=== PATIENT | male | born 1965 | race Caucasian/White ===

== ENCOUNTER 2019-09-03 20:39 | Emergency (ER) | payer SELFPAY ==
--- OUTSIDE RECORDS SUMMARY | 2019-09-03 23:00 | XMS REPORT | Continuity of Care Document ---
:1965 Author Organization [facility] t Address [address] [place] [address] Care Team Providers Name Role Phone Samuel Jimenez MD Primary Care Physician Jermaine DEL VALLE, HKarol Attending Clinician Elvis Burden MA Attending Clinician Unavailable THOMAS Attending Clinician Unavailable Lamin Guzman Attending Clinician Payers Payer Name Policy Type Policy Number Effective Date Expiration Date S [facility] xxxxxxxxxxx 2019 [place] [employer]xxxxxxx 00:00:00 [employer] [id number] Problems Condition Condition Condition Status Onset Resolution Last Treating Co mments Source Name Details Category Date Date Treatment Clinician Date M23 - Diagnosis Active 2016-12-27 M emoria UNSPECIFIE - 07:43:00 l D INTERNAL M23. - 00:01: He rmann DERANGEME UNSPECIFIE 00 D INTERNAL DERANGEME Active 10/21/2016 MH OPID Eldred Limb pain Limb pain Problem Active [facility] [place] [facility] Acute Acute Problem Active Univers internal internal ity of [place] t of knee, t of knee, Ph ysici left left ans Allergies, Adverse Reactions, Alerts This patient has no known allergies or adverse reactions. Family History Family Member Diagnosis Comments Start Date Stop Date Source Natural brother Colon polyps [facility] Social History Social Habit Start Date Stop Date Quantity Comments Source Sex Assigned At [place] M ethodist Alcohol intake 2019-07-16 2019-07-16 Current drinker [place] [facility] 00:00:00 00:00:00 of alcohol (finding) Alcohol Comment 2019-06-28 2019-06-28 6 Martin Hernandez ethodist 00:00:00 00:00:00 Social History 2016-10-30 2016-10-30 [facility] Darlyn desai 04:59:00 04:59:00 Smoking Status Start Date Stop Date Source Never smoker Martin Browningis t Medications Ordered Filled Start Stop Current Ordering Indication Dosage Frequency Signature Comments Components Source Medication Medication Date Date Medication? Clinician (SIG) Name Name pantoprazol No 40mg QD Take 40 mg Martin manjarrez 07-27 by mouth [facility] (PROTONIX) 09:05: 00:[address] 40 MG EC 57 :00 tablet pantoprazol Yes Gastroesoph 40mg QD Take 1 Martin manjarrez 07-27 ageal tablet (40 [facility] (PROTONIX) 00:00: reflux mg total) st 40 MG EC 00 disease, by mouth tablet esophagitis daily. presence not specified multivitami Yes 1{tbl} QD Take 1 Anil arredondo n,tx-iron-C 4-17 tablet by Met becca Solis 09:18: mouth st (UNI-THERA 33 daily. M) 27-0.4 mg tablet methylPREDN methylPREDN Yes JOSE TAKE Univers ISolone 4 ISolone 4 8-11 THOMAS Luz DIRECTED ity of MG Oral MG Oral 00:00: [place] Tablet Tablet 00 Physici Therapy Therapy ans Pack Pack Procedures Procedure Date / Time Performed Performing Clinician [facility] e SURGICAL PATHOLOGY 2019-07-16 11:28:00 Stefani Dean REQUEST FL ESOPHAGRAM SINGLE 2019-07-01 10:35:00 Stefani Dean CONTRAST Plan of Care Planned Activity Planned Date Details Comments Source Future Scheduled 2019-10-12 INFLUENZA VACCINE Steve Holland Test 00:00:00 [code = INFLUENZA VACCINE] Future Scheduled 2017-10-25 COLONOSCOPY SCREENING Anil bryon [facility] Test 00:00:00 [code = COLONOSCOPY SCREENING] Future Scheduled 2017-10-25 SHINGLES VACCINES Steve Holland Test 00:00:00 (#1) [code = SHINGLES VACCINES (#1)] Encounters Start End Encounter Admission Attending Care Care Encounter Source Date/Time Date/Time Type Type Clinicians Facility Department ID 2019-07-16 2019-07-16 Outpatient JERMAINE [facility] [id number] [place] 00:00:00 00:00:00 [address] 2019-07-01 2019-07-01 Outpatient JERMAINE [facility] [id number] [place] 00:00:00 00:00:[address] 2016-11-03 2016-11-03 CLARITA Ocampo UTP [id number] Univers 10:30:00 10:30:00 t; JOSE GUZMAN M.D. [facility] 2016-10-29 2016-10-29 Outpatient Thomas OIP [facility] [id number] 10:29:00 23:59:00 Jose Kimble 00 2016-10-21 2016-10-21 CLARITA Ocampo UTP [id number] Univers 10:00:00 10:00:00 t; JOSE GUZMAN M.D. [facility] Results Test Description Test Time Test Comments Results Result Comments Source Surgical pathology request 2019-07-18 15:30:30 Test Item Value Reference Range Interpretation Comme nts Case number (test code = [id number]) [id number] Surgical pathology report (test code = See link below for PDF Lab R eport 8591) Result status (test code = 2385296) This is Final Report for [id number] [facility] Esophagram Single [id number] 10:50:43Hm Interface, Radiology Results 07/01/2019 10:53 AM CDTEXAMINATION: FL ESOPHAGRAM SINGLECONTRASTCLINICAL HISTORY: R13.10 Dysphagia unspecified, Dysphagia retrosternalCOMPARISON: None.Fluoroscopy time: 0.9 minutes. 9 images.FINDINGS: Thin consistency contrast material was administered.Limited evaluation of the esophageal mucosa.No fixed strictures are identified. There is a tiny typeI hiatal hernia. A few nonpropulsive tertiary contractions are noted, but esophageal motility was otherwise normal.No spontaneous or provoked gastroesophageal reflux was identified during the course ofthe examination.IMPRESSION:No fixed strictures are identified.Tiny type I hiatal hernia.[id number] Episcopalian
--- OUTSIDE RECORDS SUMMARY | 2019-09-03 23:00 | XMS REPORT | Clinical Summary ---
:1965 Author Organization [facility] Address [address] [place] [address] Care Team Providers Name Role Phone Chino Jimenez MD Primary Care Provider Allergies No Known Allergies Medications Medication Sig Dispensed Refills Start Date End Date Status multivitamin,tx-iron- Take 1 0 Active Ca-FA-min (UNI-THERA tablet by M) 27-0.4 mg tablet mouth daily. pantoprazole Take 1 90 tablet 2 07/28/2019 Active (PROTONIX) 40 MG EC tablet (40 tabletIndications: mg total) Gastroesophageal by mouth reflux disease, daily. esophagitis presence not specified pantoprazole Take 40 mg 0 Discon tinued (PROTONIX) 40 MG EC by mouth 0 (Reorder) tablet daily. Active Problems Not on file Encounters Date Type Specialty Care Team Description 07/28/2019 Orders Only Gastroenterology Chino Dean Gastroesop hageal reflux MD Brianda disease, esopha gitis presence not sp ecified (Primary Dx) 07/16/2019 Lab Lab Chino Dean MD 07/16/2019 Documentation Gastroenterology Chino Dean EGMalena Lamar MD 07/15/2019 Telephone Gastroenterology Jocelyn Burden MA 07/11/2019 Telephone Gastroenterology Chino Dean MD 07/11/2019 Travel 07/01/2019 Hospital Encounter Radiology Chino Dean Esophagjosseline al dysphagia MD Brianda 07/01/2019 Orders Only GastroenterChino Silva Esophageal dysphagia MD Brianda (Primary Dx) 07/01/2019 Travel 06/28/2019 Telephone Consult Gastroenterology Chino Dean Esoph ageal dysphagia MD Brianda (Primary Dx) 06/28/2019 Travel 06/25/2019 Telephone Gastroenterology Jocelyn Burden MA 06/05/2019 Telephone Gastroenterology Chino Dean MD after 09/02/2018 Family History Medical History Relation Name Comments Colon polyps Brother Relation Name Status Comments Brother Social History Tobacco Use Types Packs/Day Years Used Date Never Smoker Smokeless Tobacco: Former User Q uit: 07/15/2009 Alcohol Use Drinks/Week oz/Week Comments Yes 6 Sex Assigned at Date Recorded Not on file Job Start Date Occupation Industry Not on file Not on file Not on file Travel History Travel Start Travel End No recent travel history available. Last Filed Vital Signs Not on file Plan of Treatment Health Maintenance Due Date Last Done Comments COLONOSCOPY SCREENING 10/25/2017 SHINGLES VACCINES (#1) 10/25/2017 INFLUENZA VACCINE 10/12/2019 Procedures Procedure Name Priority Date/Time Associated Comments Diagnosis SURGICAL PATHOLOGY Routine 07/16/2019 11:28 AM Re sults for this REQUEST CDT procedure are i n the results section. FL ESOPHAGRAM SINGLE Routine 07/01/2019 10:35 AM Esophageal Results for this CONTRAST CDT dysphagia procedure are i n the results section. after 09/02/2018 Results Surgical pathology request (07/16/2019 11:28 AM CDT) [facility] DEPARTMENT OF PATHOLOGY AND GENOMIC MEDICINE Surgical pathology See link below [facility] DEPARTMENT OF report for PDF Lab PATHOLOGY AND Report GENOMIC MEDICINE Result status This is Final [facility] DEPARTMENT OF Report for PATHOLOGY AND [id number] GENOMIC MEDICINE Specimen Performing Organization Address City/State/Zipcode Phone Number [facility] DEPARTMENT OF PATHOLOGY AND [address] [place], [place] [address] GENOMIC MEDICINE [place] Esophagram Single Contrast (07/01/2019 10:35 AM CDT) Specimen Narrative Performed At EXAMINATION: [place] ESOPHAGRAM SINGLE CONT RAST RADIANT CLINICAL HISTORY: R13.10 Dysphagia unspecified, Dy sphagia retrosternal COMPARISON: None. Fluoroscopy time: 0.9 minutes. 9 images. FINDINGS: Thin consistency contrast material was administered. L imited evaluation of the esophageal mucosa. No fixed strictures are identified. There is a tiny ty pe I hiatal hernia. A few nonpropulsive tertiary contractions are noted, but esophageal motility was otherwise normal . No spontaneous or provoked gastroesophageal reflux was identified during the course of the examination. IMPRESSION: No fixed strictures are identified. Tiny type I hiatal hernia. [id number] Procedure Note Hm Interface, Radiology Results Incoming - 07/01/2019 10:53 AM CDT EXAMINATION: FL ESOPHAGRAM SINGLE CONTRAST CLINICAL HISTORY: R13.10 Dysphagia uns pecified, Dysphagia retrosternal COMPARISON: None. Fluoroscopy time: 0.9 minutes. 9 images. FINDINGS: Thin consistency contrast material was a dministered. Limited evaluation of the esophageal mucosa. No fixed strictures are identified. Ther e is a tiny type I hiatal hernia. A few nonpropulsive tertiary contractions are noted, but esophageal motility was otherwise normal. No spontaneous or provoked gastroesophag eal reflux was identified during the course of the examination. IMPRESSION: No fixed strictures are identified. Tiny type I hiatal hernia. 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
--- OUTSIDE RECORDS SUMMARY | 2019-09-03 23:00 | XMS REPORT | Continuity of Care Document ---
:1965 Author Organization [facility] Care Team Providers Name Role Phone [facility] Unavailable Un available Problems Problem Status Onset Classification Date Comments Sourc e Date Reported M23.92 - Active OPID UNSPECIFIED 7 [place] INTERNAL DERANGEME Medications No Data Provided for This Section Allergies, Adverse Reactions, Alerts No Known Medication Allergies Immunizations No Data Provided for This Section Results No Data Provided for This Section Pathology Reports No Data Provided for This Section Diagnostic Reports Report Value Date Source Knee wo contrast MRI 10/29/2016 OP[facility] [place] EXAM: Left knee wo contrast MRI INDICATION: M23.92 Unspeci fied internal derangement of left knee - M23.92 Unspecified internal derangement of left knee COMPARISON: None. TECHNIQUE: Multiplanar, mult isequence magnetic resonance imaging of the left knee was performed without the administration of intravenous gadolinium contrast. FINDINGS: Intercondylar notch: Anterio r cruciate ligament and posterior cruciate ligament are intact. Medial compartment: No menis james tear or chondral defect is seen. Medial collateral ligament is intact. Lateral compartment: No meni scal tear or chondral defect is seen. Lateral collateral ligament complex is intact. Posterolateral corner structures are intact. Patellofemoral compartment: The hyaline cartilage along the patella is intact. There are numerous, deep, full-thickness cartilage fissures with underlying cystic changes and mild bone marrow edema along the apex of the trochlea. Extensor mechanism: Quadriceps and patellar tend ons are intact. Other findings: Small joint effusion is seen. Small to moderate-sized Barrios's cyst is seen, showing superior dissection. Surrounding soft tissue edema is seen, suggesting underlying disruption or leakage. IMPRESSION: 1. Full-thickness chondrosis with underlying cystic change and mild marrow edema along the apex of the trochlea. 2. No meniscal, cruciate ligament, or collateral ligament tear. 3. Small joint effusion. 4. Small to moderate-sized B deepthi's cyst, showing evidence of disruption or leakage. SL: SLEE-PC Consultation Notes No Data Provided for This Section Discharge Summaries No Data Provided for This Section History and Physicals No Data Provided for This Section Vital Signs No Data Provided for This Section Encounters Location Location Encounter Encounter Reason Attending ADM DE Stat Source Details Type Number For Provider Date Date Visit [facility] Outpt Diag [id number] Jose 10/29 10/30 [facility] OP[facility] Procedures No Data Provided for This Section Assessment and Plan No Data Provided for This Section Plan of Care No Data Provided for This Section Social History Social History Date Source No data available for this 10/30/2016 OPID [place] and section Family History No Data Provided for This Section Advance Directives No Data Provided for This Section Functional Status No Data Provided for This Section
--- NOTE | 2019-09-04 10:30 | ER ---
Nurse's Notes [facility] Name: Jaylon Caballero Age: 53 yrs Sex: Male : 1965 Arrival Date: 09/03/2019 Time: 20:49 Bed Waiting Private MD: Diagnosis: Presentation: 09/02 20:58 Chief complaint: Patient states: Woke up this morning with a cough, gone through a very ca1 knotted stomach and around 5pm I started having rash blisters on my arm, waistline, feet, legs. Denies SOB. Denies fever. 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 Coronavirus screen: Proceed with normal triage. Patient reports a cough. Patient denies shortness of breath or difficulty breathing. Patient denies measured and/or subjective temperature greater than 100.4F prior to today's visit. Patient denies travel on a cruise ship or to a country the [facility] currently lists as an affected area. Patient denies contact with known and/or suspected case of COVID-19. Ebola Screen: Patient negative for fever greater than or equal to 101.5 degrees Fahrenheit, and additional compatible Ebola Virus Disease symptoms Patient denies exposure to infectious person. Patient denies travel to an Ebola-affected area in the 21 days before illness onset. No symptoms or risks identified at this time. Initial Sepsis Screen: Does the patient meet any 2 criteria? No. Patient's initial sepsis screen is negative. Does the patient have a suspected source of infection? No. Patient's initial sepsis screen is negative. Risk Assessment: Do you want to hurt yourself or someone else? Patient reports no desire to harm self or others. Onset of symptoms was September 03, 2019. 20:58 Method Of Arrival: Ambulatory ca1 20:58 Acuity: CARMELA 3 ca1 Historical: - Allergies: 21:03 No Known Allergies; ca1 - Home Meds: 21:03 pantoprazole oral oral [Active]; ca1 - PMHx: 21:03 Gastric Reflux; ca1 - PSHx: 21:03 Ankle Surgery; Back Surgery; ca1 - Immunization history:: Adult Immunizations up to date. - Social history:: Smoking status: Patient denies any tobacco usage or history of. Vital Signs: 20:58 BP 148 / 102; Pulse 85; Resp 16 S; Temp 97.2(TE); Pulse Ox 98% on R/A; Weight 104.33 kg ca1 (R); Height 5 ft. 10 in. (177.80 cm) (R); 20:58 Body Mass Index 33.00 (104.33 kg, 177.80 cm) ca1 ED Course: 20:49 Patient arrived in ED. ds1 21:01 Triage completed. ca1 21:03 Arm band placed on right wrist. ca1 Administered Medications: No medications were administered Outcome: 23:27 Patient left the ED. lp1 Signatures: Sindy Desouza ds1 Delilah Davila, RN RN lp1 Kendra Jackson, RN RN ca1
[2019-09-04 13:30] VITALS: BP 148/102; TEMP 97.2; O2SAT 98
== END 2019-09-03 23:27 | disposition left against medical advice (07) ==
LOC: ER 20:39
DX: Z53.21 Procedure and treatment not carried out due to patient leaving prior to being seen by health care provider (principal)
CPT/HCPCS: 99281

== ENCOUNTER 2022-01-21 20:33 | Emergency (ER) | payer OTHER ==
--- OUTSIDE RECORDS SUMMARY | 2022-01-21 20:36 | XMS REPORT | Continuity of Care Document ---
:1965 Author Organization [facility] t Address [address] [place] [address] [address] [place] [address] Care Team Providers Name Role Phone Stefani Jimenez MD Primary Care Physician Lorena Phillips MD Attending Clinician [phone] LORENA PHILLIPS Attending Clinician Unavailable Stefani Dean MD Attending Clinician JOSE GUZMAN M.D. Attending Clinician Unavailable Jose Guzman Attending Clinician Payers Payer Name Policy Type Policy Number Effective Date Expiration Date S baldev [facility] 2 [id number] 2021 00:00:00 [facility] MARKYKaro 2014 00:00:00 Problems Condition Condition Condition Status Onset Resolution Last Treating Co mments Source Name Details Category Date Date Treatment Clinician Date M23.92 - M23.92 - Diagnosis Active 2016-12-27 Memoria UNSPECIFIE UNSPECIFIE 8- 07:43:00 l D INTERNAL D INTERNAL 00:01: He lawrence BROWNANGEME DERANGEME 00 Active 10/21/2016 [facility] OPID [place] Acute Acute Problem Active [facility] internal internal Physic i derangemen derangemen an s t of knee, t of knee, left left Limb pain Limb pain Problem Active [facility] Allergies, Adverse Reactions, Alerts Allergy Allergy Status Severity Reaction(s) Onset Inactive Treating Comm ents Source Name Type Date Date Clinician NO KNOWN Drug Active Univers ALLERGIE Class ity of [facility] Family History Family Member Diagnosis Comments Start Date Stop Date Source Natural brother Colon polyps [facility] Social History Social Habit Start Date Stop Date Quantity Comments Source Alcohol intake 2021-04-13 2021-04-13 Current drinker [facility] 00:00:00 00:00:00 of alcohol Hospital (finding) Tobacco use and 2019-07-16 2019-07-16 Former smokeless [facility] exposure 00:00:00 00:00:00 tobacco user Hospital Alcohol Comment 2019-06-28 2019-06-28 6 [facility] 00:00:00 00:00:00 Hospital History of 2009-07-15 User of smokeless [facility] tobacco use 00:00:00 tobacco Hospital Sex Assigned At [birth year] [facility] 00:00:00 [facility]:00 Hospital Smoking Status Start Date Stop Date Source Never smoked tobacco [facility] Medications Ordered Filled Start Stop Current Ordering Indication Dosage Frequency Signature Comments Components Source Medication Medication Date Date Medication? Clinician (SIG) Name Name pantoprazol Yes [id number] 40mg QD Take 1 [facility] e 2-01 tablet (40 st (PROTONIX) 00:00: mg total) Ho spita 40 MG EC 00 by mouth l tablet daily. pantoprazol 2020-03- No [id number] TAKE ONE Methodi e 0-02 04-13 (1) st (PROTONIX) 00:00: 00:00 TABLET(S) H ospita 40 MG EC 00 :00 BY MOUTH l tablet ONCE A DAY. multivitami Yes 1{tbl} QD Take 1 Me thodi n,tx-iron-C 4-[address] a-FA-min 09:18: mouth Hospita (UNI-THERA 33 daily. l M) 27-0.4 mg tablet methylPREDN methylPREDN Yes JOSE TAKE [place] ISolone 4 ISolone 4 8-11 THOMAS Luz DIRECTED Physici MG Oral MG Oral 00:00: ans Tablet Tablet 00 Therapy Therapy Pack Pack Procedures This patient has no known procedures. Plan of Care Planned Activity Planned Date Details Comments Source Future Scheduled 2022-01-16 HEPATITIS B VACCINES Met [facility] Test 23:15:08 (1 of 3 - 3-dose series) [code = HEPATITIS B VACCINES (1 of 3 - 3-dose series)] Future Scheduled 2022-01-16 COVID-19 VACCINE (#1) [facility] Test 23:15:08 [code = COVID-19 VACCINE (#1)] Future Scheduled 2022-01-16 Hepatitis C screening [facility] Test 23:15:08 (procedure) [code = 196508709] Future Scheduled 2022-01-16 COLONOSCOPY SCREENING [facility] Test 23:15:08 [code = COLONOSCOPY SCREENING] Future Scheduled 2022-01-16 SHINGLES VACCINES (1 Met [facility] Test 23:15:08 of 2) [code = SHINGLES VACCINES (1 of 2)] Future Scheduled 2022-01-16 INFLUENZA VACCINE Method [facility] Test 23:15:08 [code = INFLUENZA VACCINE] Encounters Start End Encounter Admission Attending Care Care Encounter Source Date/Time Date/Time Type Type Clinicians Facility Department ID 2021-08-30 2021-08-30 Office Wade Phillips [id number] 10:15:00 10:30:00 Visit Lorena Ford [id number] Se carolyn Clayquyen [id number] 2021-08-30 2021-08-30 Outpatient DESIRE PHILLIPS [id number] [place] 10:15:00 10:15:00 LORENA valdes 2021-04-13 2021-04-13 Telemedici Jermaine [id number] Methodi 13:30:00 13:31:57 ne Stefani Lamar [id number] 3.430.2.7 Hospit a .[id number] l .8 2021-04-13 2021-04-13 Outpatient JERMAINE [facility] [id number] [place] 00:00:00 00:00:[address] 2021-04-09 2021-04-09 Refill Jermaine [id number] [facility] 00:00:00 00:00:00 Stefani Lamar [id number] 3.430.2.7 Hospit a .3.448084 l .8 2019-09-05 2019-09-05 Outpatient R [facility] [id number] Univers 16:00:00 16:00:[address] [facility] 2019-07-16 2019-07-16 Outpatient JERMAINE, [facility] [id number] [place] 00:00:00 00:00:00 [address] 2019-07-01 2019-07-01 Outpatient JERMAINE [facility] [id number] [place] 00:00:00 00:00:[address] 2016-11-03 2016-11-03 CLARITA Ocampo UTP [id number] [place] 10:30:00 10:30:00 t; JOSE GUZMAN M.D. Physici EDDIE, ans M.D. 2016-10-29 2016-10-30 Outpt Diag nullFlavo [facility] [id number] Memoria 15:29:00 04:59:00 Services r Outpatient 00 l Leandro Michaelsland 2016-10-29 2016-10-29 Outpatient KHOA Guzman [facility] [id number] 10:29:00 23:59:00 Jose Kimble 00 2016-10-21 2016-10-21 CLARITA Ocampo UTP [id number] [place] 10:00:00 10:00:00 t; JOSE GUZMAN M.D. Physici EDDIE, ans M.D. Results This patient has no known results.
[2022-01-21] MEDS ORDERED: NA CHLORIDE 0.9% 1,000 ML ONE ×2 (21:44→23:32)
--- NOTE | 2022-01-21 21:49 | RAD REPORT ---
EXAM DESCRIPTION: RAD - Chest Single View - 01/21/2022 9:42 pm CLINICAL HISTORY: COUGH COMPARISON: CHEST PA AND LAT 2 VIEW dated 04/18/2008 FINDINGS: Lines: None. Lungs: No evidence of edema or pneumonia. Pleural: No significant pleural effusions or pneumothorax. Cardiac: The heart size is within normal limits. Mediastinum: Within normal limits. Bones: No acute fractures. Other: None IMPRESSION: No acute cardiopulmonary disease.
[2022-01-21] MEDS ORDERED: ONDANSETRON 4 MG/2 ML VIAL ONE (22:18)
[2022-01-21] MEDS ORDERED: NA CHLORIDE 0.9% 500 ML ONE (22:18)
[2022-01-21] MEDS ORDERED: GLUCAGON 1 MG/VIAL ONE ×2 (22:18→23:49)
[2022-01-21] MEDS ORDERED: FAMOTIDINE 20 MG/2 ML VIAL IV ONE (22:18)
[2022-01-21 22:28] LABS: Absolute Lymphocytes (CBC) 1.4 K/uL (0.7-4.9); Hematocrit 46.8 % (39.6-49.0); Lymphocytes % 21.3 % (15.3-44.8); MCV 94.7 fL (80-100); MPV 8.3 fL (7.6-11.3); Protime INR 0.98; RBC Red Blood Cell Count 4.94 M/uL (4.33-5.43)
[2022-01-21 23:42] LABS: Albumin 4.4 g/dL (3.4-5.0); Bilirubin Direct 0.1 mg/dL (0-0.2); Bilirubin Total 0.5 mg/dL (0.2-1.0); Magnesium 2.4 mg/dL (1.8-2.4); Potassium 3.8 mmol/L (3.5-5.1); Protein, Total 8.3 g/dL (6.4-8.2); Troponin High Sensitivity 5.4 pg/mL (<58.9)
--- NOTE | 2022-01-22 00:34 | EDPHYS ---
Physician Documentation [facility] Name: Jaylon Caballero Age: 56 yrs Sex: Male : 1965 Arrival Date: 01/21/2022 Time: 20:47 Bed 2 Private MD: ED Physician Baljinder Steele HPI: 01/22 00:10 This 56 yrs old Male presents to ER via Ambulatory with complaints of Foreign sarahi Body In Throat. 00:10 The patient presents to the emergency department with nausea, that is mild. Onset: The sarahi symptoms/episode began/occurred just prior to arrival. Possible causes: ESOPHAGEAL FOOD BOLUS. The symptoms are aggravated by food , The symptoms are alleviated by NOT EATING. Associated signs and symptoms: The patient has no apparent associated signs or symptoms. Severity of symptoms: At their worst the symptoms were mild in the emergency department the symptoms are unchanged. The patient has experienced similar episodes in the past, multiple times. Historical: - Allergies: 01/21 20:48 No Known Allergies; hb - Home Meds: 20:48 pantoprazole Oral [Active]; hb - PMHx: 20:48 Gastric Reflux; hb - Immunization history:: unknown. - Social history:: Smoking status: unknown. ROS: 01/22 00:12 Constitutional: Negative for fever, chills, and weight loss, Eyes: Negative for injury, sarahi pain, redness, and discharge, ENT: Negative for injury, pain, and discharge, Neck: Negative for injury, pain, and swelling, Cardiovascular: Negative for chest pain, palpitations, and edema, Respiratory: Negative for shortness of breath, cough, wheezing, and pleuritic chest pain, Back: Negative for injury and pain, : Negative for injury, bleeding, discharge, and swelling, MS/Extremity: Negative for injury and deformity, Skin: Negative for injury, rash, and discoloration, Neuro: Negative for headache, weakness, numbness, tingling, and seizure, Psych: Negative for depression, anxiety, suicide ideation, homicidal ideation, and hallucinations, Allergy/Immunology: Negative for hives, rash, and allergies, Endocrine: Negative for neck swelling, polydipsia, polyuria, polyphagia, and marked weight changes, Hematologic/Lymphatic: Negative for swollen nodes, abnormal bleeding, and unusual bruising. Abdomen/GI: Positive for nausea and vomiting, FOOD BOLUS IN ESOPHAGUS . Exam: 00:12 Constitutional: This is a well developed, well nourished patient who is awake, alert, sarahi and in no acute distress. Head/Face: Normocephalic, atraumatic. Eyes: Pupils equal round and reactive to light, extra-ocular motions intact. Lids and lashes normal. Conjunctiva and sclera are non-icteric and not injected. Cornea within normal limits. Periorbital areas with no swelling, redness, or edema. ENT: Nares patent. No nasal discharge, no septal abnormalities noted. Tympanic membranes are normal and external auditory canals are clear. Oropharynx with no redness, swelling, or masses, exudates, or evidence of obstruction, uvula midline. Mucous membranes moist. Neck: Trachea midline, no thyromegaly or masses palpated, and no cervical lymphadenopathy. Supple, full range of motion without nuchal rigidity, or vertebral point tenderness. No Meningismus. Chest/axilla: Normal chest wall appearance and motion. Nontender with no deformity. No lesions are appreciated. Cardiovascular: Regular rate and rhythm with a normal S1 and S2. No gallops, murmurs, or rubs. Normal PMI, no JVD. No pulse deficits. Respiratory: Lungs have equal breath sounds bilaterally, clear to auscultation and percussion. No rales, rhonchi or wheezes noted. No increased work of breathing, no retractions or nasal flaring. Abdomen/GI: Soft, non-tender, with normal bowel sounds. No distension or tympany. No guarding or rebound. No evidence of tenderness throughout. Back: No spinal tenderness. No costovertebral tenderness. Full range of motion. Male : Normal genitalia with no discharge or lesions. Skin: Warm, dry with normal turgor. Normal color with no rashes, no lesions, and no evidence of cellulitis. MS/ Extremity: Pulses equal, no cyanosis. Neurovascular intact. Full, normal range of motion. Neuro: Awake and alert, GCS 15, oriented to person, place, time, and situation. Cranial nerves II-XII grossly intact. Motor strength 5/5 in all extremities. Sensory grossly intact. Cerebellar exam normal. Normal gait. Psych: Awake, alert, with orientation to person, place and time. Behavior, mood, and affect are within normal limits. 00:12 ECG was reviewed by the Attending Physician. Vital Signs: 01/21 20:47 Pulse 83; Resp 16; Temp 97.5; Pulse Ox 98% on R/A; Weight 99.79 kg; Height 5 ft. 10 in. hb (177.80 cm); Pain 3/10; 23:30 BP 121 / 79; Pulse 63; Resp 16; Pulse Ox 97% on R/A; aa9 01/22 00:00 BP 137 / 87; Pulse 76; Resp 16 S; Pulse Ox 98% on R/A; aa9 01/21 20:47 Body Mass Index 31.57 (99.79 kg, 177.80 cm) hb MDM: 01/21 20:55 Patient medically screened. [facility] 01/22 00:14 Differential diagnosis: Nonspecific abd pain, gastritis, pancreatitis, viral sarahi gastroenteritis. Data reviewed: vital signs, nurses notes, lab test result(s), EKG, radiologic studies, plain films. Data interpreted: value engineer: rate is 83 beats/min, rhythm is regular, Pulse oximetry: on room air is 98 %. Test interpretation: by ED physician or midlevel provider: ECG, plain radiologic studies. Counseling: I had a detailed discussion with the patient and/or guardian regarding: the historical points, exam findings, and any diagnostic results supporting the discharge/admit diagnosis, lab results, radiology results. 01/21 20:57 Order name: Basic Metabolic Panel; Complete Time: 00:30 [facility] 01/21 20:57 Order name: CBC with Diff; Complete Time: 23:03 [facility] 01/21 20:57 Order name: LFT's; Complete Time: 00:30 [facility] 01/21 20:57 Order name: Magnesium; Complete Time: 00:30 [facility] 01/21 20:57 Order name: NT PRO-BNP; Complete Time: 00:30 [facility] 01/21 20:57 Order name: PT-INR; Complete Time: 23:03 [facility] 01/21 20:57 Order name: Troponin HS; Complete Time: 00:30 [facility] 01/21 20:57 Order name: XRAY Chest (1 view); Complete Time: 23:03 [facility] 01/21 20:57 Order name: EKG; Complete Time: 20:58 [facility] 01/21 20:57 Order name: Cardiac monitoring; Complete Time: 23:29 [facility] 01/21 20:57 Order name: EKG - Nurse/Tech; Complete Time: 00:03 [facility] 01/21 20:57 Order name: IV Saline Lock; Complete Time: 22:30 [facility] 01/21 20:57 Order name: Labs collected and sent; Complete Time: :30 [facility] 01/21 20:57 Order name: O2 Per Protocol; Complete Time: 23:29 [facility] 01/21 20:57 Order name: O2 Sat Monitoring; Complete Time: 23:29 [facility] 01/22 00:30 Order name: PO challenge; Complete Time: 00:43 [facility] EC:12 Rate is 77 beats/min. Rhythm is regular. QRS [place] is Normal. MS interval is normal. QRS sarahi interval is normal. QT interval is normal. No Q waves. T waves are Normal. No ST changes noted. Clinical impression: Normal ECG, LVH, and No evidence of ischemia. Interpreted by me. Reviewed by me. Administered Medications: 01/21 22:30 Drug: Zofran (Ondansetron) 4 mg Route: IVP; Site: left antecubital; 01/22 00:43 Follow up: Response: No adverse reaction 01/21 22:30 Drug: Pepcid (famotidine) 20 mg Route: IVP; Site: left antecubital; 01/22 00:43 Follow up: Response: No adverse reaction 01/21 22:30 Drug: Glucagon 1 mg Route: IVP; Site: left antecubital; 01/22 00:43 Follow up: Response: No adverse reaction 01/21 22:30 Drug: NS 0.9% 500 ml Route: IV; Rate: bolus; Site: left antecubital; 23:40 Drug: NS 0.9% 1000 ml Route: IV; Rate: 125 ml/hr; Site: left antecubital; 01/22 00:43 Follow up: Response: No adverse reaction; IV Status: Order to discontinue infusion; IV aa9 Intake: 250ml 00:02 Drug: Glucagon 1 mg Route: IVP; Site: left antecubital; 00:43 Follow up: Response: No adverse reaction aa9 Disposition Summary: 01/22/22 00:33 Discharge Ordered Location: Home sarahi Problem: new sarahi Symptoms: have improved sarahi Condition: Stable sarahi Diagnosis - Food in esophagus - RESOLVED sarahi - Esophageal obstruction - RESOLVED sarahi Followup: sarahi - With: Private Physician - When: 1 - 2 days - Reason: Recheck today's complaints, Continuance of care, Re-evaluation by your physician Followup: sarahi - With: Mely Peter MD - When: 1 - 2 days - Reason: Recheck today's complaints, Re-evaluation by your physician Discharge Instructions: - Discharge Summary Sheet sarahi - Esophageal Stricture sarahi - Esophageal Dilatation sarahi Forms: - Medication Reconciliation Form sarahi - Thank You Letter sarahi - Antibiotic Education sarahi - Prescription Opioid Use [facility] Prescriptions: - Protonix 40 mg Oral Tablet - take 1 tablet by ORAL route once daily; 30 tablet; Refills: 0, Product [facility] Selection Permitted - Zofran 4 mg Oral Tablet - take 1 tablet by ORAL route every 12 hours As needed; 20 tablet; Refills: 0, [facility] Product Selection Permitted Signatures: Dispatcher [employer] Baljinder Curiel MD MD cha Baxter, Heather, RN Sarai Cali tw5 Alia Ann RN RN aa9
--- NOTE | 2022-01-22 00:34 | ER ---
Nurse's Notes [facility] Name: Jaylon Caballero Age: 56 yrs Sex: Male : 1965 Arrival Date: 01/21/2022 Time: 20:47 Bed 2 Private MD: Diagnosis: Food in esophagus-RESOLVED;Esophageal obstruction-RESOLVED Presentation: 01/21 20:47 Chief complaint: Piece of chicken stuck in throat, not tolerating fluids. Coronavirus hb screen: At this time, the client does not indicate any symptoms associated with coronavirus-19. Ebola Screen: No symptoms or risks identified at this time. Risk Assessment: Do you want to hurt yourself or someone else? Patient reports no desire to harm self or others. Onset of symptoms was January 21, 2022. 20:47 Method Of Arrival: Ambulatory hb 20:47 Acuity: CARMELA 3 hb 22:15 Initial Sepsis Screen: Does the patient meet any 2 criteria? No. Patient's initial tw5 sepsis screen is negative. Does the patient have a suspected source of infection? No. Patient's initial sepsis screen is negative. Triage Assessment: 01/22 00:44 General: Appears uncomfortable, Behavior is calm, cooperative, appropriate for age. aa9 Pain: Complains of pain in neck. Historical: - Allergies: 01/21 20:48 No Known Allergies; hb - Home Meds: 20:48 pantoprazole Oral [Active]; hb - PMHx: 20:48 Gastric Reflux; hb - Immunization history:: unknown. - Social history:: Smoking status: unknown. Screenin/12 00:44 Abuse screen: Denies threats or abuse. Denies injuries from another. Nutritional aa9 screening: No deficits noted. Tuberculosis screening: No symptoms or risk factors identified. Fall Risk None identified. Assessment: 01/21 22:15 General: Reports " I feel like my throat is getting tighter now from all the vomiting.".tw5 22:21 General: still awaiting on a open room . tw5 22:21 General: Patient is still able to handle secretions at this time. . GI: Pt is actively tw5 vomiting. 01/22 00:00 Reassessment: Patient appears in no apparent distress at this time. Neuro: Level of aa9 Consciousness is awake, alert, obeys commands, Oriented to person, place, time, situation. 00:00 Cardiovascular: Patient's skin is warm and dry. Respiratory: Airway is patent aa9 Respiratory effort is even, unlabored. : No signs and/or symptoms were reported regarding the genitourinary system. EENT: No signs and/or symptoms were reported regarding the EENT system. Derm: Skin is intact, is healthy with good turgor. Vital Signs: 01/21 20:47 Pulse 83; Resp 16; Temp 97.5; Pulse Ox 98% on R/A; Weight 99.79 kg; Height 5 ft. 10 in. hb (177.80 cm); Pain 3/10; 23:30 BP 121 / 79; Pulse 63; Resp 16; Pulse Ox 97% on R/A; aa9 01/22 00:00 BP 137 / 87; Pulse 76; Resp 16 S; Pulse Ox 98% on R/A; aa9 01/21 20:47 Body Mass Index 31.57 (99.79 kg, 177.80 cm) hb ED Course: 01/21 20:47 Patient arrived in ED. hb 20:48 Triage completed. hb 20:48 Arm band placed on. hb 20:55 Baljinder Steele MD is Attending Physician. sarahi 21:44 XRAY Chest (1 view) In Process Unspecified. EDMS 22:15 Patient has correct armband on for positive identification. tw5 22:15 Initial lab(s) drawn, by me, sent to lab. Inserted saline lock: 20 gauge in left tw5 antecubital area, using aseptic technique. Blood collected. 22:30 Basic Metabolic Panel Sent. tw5 22:30 CBC with Diff Sent. tw5 22:30 LFT's Sent. tw5 22:30 Magnesium Sent. tw5 22:30 NT PRO-BNP Sent. tw5 22:31 Troponin HS Sent. tw5 23:29 Alia Ann, MAX is Primary Nurse. aa9 01/22 00:30 Mely Peter MD is Referral Physician. sarahi 00:44 No provider procedures requiring assistance completed. IV discontinued, intact, aa9 bleeding controlled, No redness/swelling at site. Pressure dressing applied. Administered Medications: 01/21 22:30 Drug: Zofran (Ondansetron) 4 mg Route: IVP; Site: left antecubital; tw5 01/22 00:43 Follow up: Response: No adverse reaction aa9 01/21 22:30 Drug: Pepcid (famotidine) 20 mg Route: IVP; Site: left antecubital; 01/22 00:43 Follow up: Response: No adverse reaction aa9 01/21 22:30 Drug: Glucagon 1 mg Route: IVP; Site: left antecubital; 01/22 00:43 Follow up: Response: No adverse reaction 9 01/21 22:30 Drug: NS 0.9% 500 ml Route: IV; Rate: bolus; Site: left antecubital; 23:40 Drug: NS 0.9% 1000 ml Route: IV; Rate: 125 ml/hr; Site: left antecubital; 01/22 00:43 Follow up: Response: No adverse reaction; IV Status: Order to discontinue infusion; IV aa9 Intake: 250ml 00:02 Drug: Glucagon 1 mg Route: IVP; Site: left antecubital; 00:43 Follow up: Response: No adverse reaction aa9 Medication: 00:44 VIS not applicable for this client. aa9 Intake: 00:43 IV: 250ml; Total: 250ml. aa9 Outcome: 00:33 Discharge ordered by . sarahi 00:44 Discharged to home ambulatory, with family. aa9 00:44 Condition: stable 00:44 Discharge instructions given to patient, Instructed on discharge instructions, follow up and referral plans. medication usage, Demonstrated understanding of instructions, follow-up care, medications, Prescriptions given X 2. 00:45 Patient left the ED. aa9 Signatures: Dispatcher [employer] EDBaljinder Pierre MD MD cha Baxter, Heather, RN Sarai Cali tw5 Alia Ann RN RN aa9
[2022-01-22 02:00] VITALS: TEMP 97.5
[2022-01-22 02:02] VITALS: BP 137/87; O2SAT 98
--- NOTE | 2022-01-24 15:12 | EKG ---
Test Date: 2022-01-21 Test Time: 23:58:40 Dimensional Inspector: TAWNYA MEASUREMENT RESULTS: Intervals: Rate: 77 ME: 166 QRSD: 96 QT: 404 QTc: 457 [place]: P: 67 ME: 166 QRS: -4 T: 36 INTERPRETIVE STATEMENTS: Normal sinus rhythm Minimal voltage criteria for LVH, may be normal variant Borderline ECG No previous ECG available for comparison Electronically Signed On 01-24-22 15:09:43 SECURITY COMPLIANCE SPECIALIST by Zev Kendrick
== END 2022-01-22 00:45 | disposition home or self-care (01) ==
LOC: ER 20:33
DX: T18.128A Food in esophagus causing other injury, initial encounter (principal); K21.9 Gastro-esophageal reflux disease without esophagitis
CPT/HCPCS: 96361; 93005; 85025; 80048; 36415; 83735; 85610; 80076; 84484; 83880; 71045; 96375; 96374; 99284; J1610 ×2; J7040; J7030 ×2; J2405